=== PATIENT | female | born 1995 | race Caucasian/White ===

== ENCOUNTER 2020-12-13 06:13 | Emergency (ER) | payer BC ==
[~2020-12-13] VITALS: Ht 152.4 cm; Wt 67.2 kg
--- NOTE | 2020-12-13 07:07 | NUR ---
report received from ABIMAEL Gooden, care assumed at this time.
--- NOTE | 2020-12-13 07:43 | NUR ---
PT RESTING ON GURNEY, A&O, RESPS EVEN AND UNLABORED, DENIES PAIN. 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 PT INSTRUCTED TO PROVIDE CLEAN CATCH UA, STATES SHE HAS ALREADY DONE THIS. LAB CALLED TO INQUIRE, LAB LOCATED URINE SAMPLE IN LAB, TECH STATES THEY WILL RUN AT THIS TIME.
[2020-12-13 07:45] LABS: BASOPHILS % (AUTO) 0 % (0-1); EOSINOPHILS % (AUTO) 1 % (1-7); LYMPHOCYTES % (AUTO) 28 % (22-44); MEAN CORPUSCULAR HEMOGLOBIN 29.8 pg (27.0-34.8); MEAN CORPUSCULAR HGB CONC 33.4 g/dL (32.4-35.8); MEAN PLATELET VOLUME 8.6 fL (7.4-10.4); MONOCYTES % (AUTO) 5 % (2-9); NEUTROPHILS % (AUTO) 66 % (42-75); PLATELET COUNT 271 x10^3/uL (130-400); RED BLOOD COUNT 4.08 x10^6/uL (3.82-5.3); RED CELL DISTRIBUTION WIDTH 13.5 % (9.6-15.2)
[2020-12-13 07:58] LABS: ALANINE AMINOTRANSFERASE 23 U/L (12-78); ALBUMIN 3.5 g/dL (3.4-5.0); ANION GAP 6 mmol/L (5-15); CALCIUM 8.8 mg/dL (8.5-10.1); CHLORIDE 109 mmol/L (98-107)
[2020-12-13 08:00] LABS: MICROSCOPIC INDICATED
[2020-12-13 08:03] LABS: ALKALINE PHOSPHATASE 96 U/L (45-117); BILIRUBIN,TOTAL 0.3 mg/dL (0.2-1.0)
--- NOTE | 2020-12-13 08:49 | NUR ---
RECEIVED REPORT FROM ABIMAEL GONZALEZ. PT RESTING ON [facility]. NADN. PIERRES. PT CHART REVIEWED AND PLACED FOR RECHECK.
[2020-12-13 09:46] VITALS: BP 109/66
--- NOTE | 2020-12-13 09:46 | NUR ---
PT RESTING ON GURNEY. NADN. FRITZ.
== END 2020-12-13 10:29 | disposition home or self-care (01) ==
LOC: ED 10:16
DX: K80.20 Calculus of gallbladder without cholecystitis without obstruction (principal); M25.511 Pain in right shoulder
CPT/HCPCS: 36415; 74022; 76700; 80053; 81001; 83690; 84703; 85025; 87086; 99285